=== PATIENT | male | born 1965 | race African-American/Black ===

== ENCOUNTER → 2020-06-04 | Outpatient (CLI) | payer BC ==
--- NOTE | 2020-06-04 12:28 | RAD ---
Right groin ultrasound INDICATION: Right femoral hernia. Patient reported right groin pain for 3 months but it has now resol galo. COMPARISON: 02/20/[address] with oral and IV contrast. FINDINGS: Ultrasound evaluation of the right groin shows a few prominent but not pathologically enlarged superf icial Inguinal lymph nodes nodes. No hernia is identified. The right femoral canal is observed during Valsa lva and no hernia is revealed. IMPRESSION: No evidence of a hernia in the right inguinal or femoral canal. Electronically signed by: Cally Shannon MD (06/04/2020 12:26 PM) [id number]
== END ==
LOC: US 09:52
PROVIDERS: ATTEND Specialist
DX: K41.30 Unilateral femoral hernia, with obstruction, without gangrene, not specified as recurrent (principal)
CPT/HCPCS: 76881